=== PATIENT | female | born 1990 | race African-American/Black ===

== ENCOUNTER 2017-01-16 18:45 | Outpatient (CLI) | payer OTHER ==
[~2017-01-16] VITALS: Ht 172.7 cm; Wt 122.0 kg
[2017-01-16 19:16] VITALS: BP 144/78
[2017-01-16 23:00] VITALS: BP 133/80
== END 2017-01-16 23:00 | disposition home or self-care (01) ==
LOC: M LDO 18:45
PROVIDERS: ATTEND Obstetrics & Gynecology
DX: O47.03 False labor before 37 completed weeks of gestation, third trimester (principal); O21.0 Mild hyperemesis gravidarum; Z3A.35 35 weeks gestation of pregnancy

== ENCOUNTER 2017-02-07 19:37 | Inpatient (IN) | payer OTHER ==
[~2017-02-07] VITALS: Ht 167.6 cm; Wt 124.0 kg
[2017-02-07 20:04] VITALS: BP 129/74
[2017-02-07] MEDS ORDERED: PENICILLIN G POTASSIUM IV 5 MU in D5W MINI-BAG PLUS 100 ML IV STA (23:29)
[2017-02-07] MEDS ORDERED: OXYTOCIN DRIP 30 UNITS in APPROPRIATE DILUENT 1 EA IV SCH (23:30)
[2017-02-07] MEDS ORDERED: PRENTAB20 PO (23:38)
[2017-02-08] VITALS (33 sets, daily range): BP systolic 101–155; BP diastolic 56–120
[2017-02-08] MEDS: LR 1,000 ML IV SCH ×2 (00:02→08:04)
[2017-02-08 00:28] LABS: MEAN CORPUSCULAR HEMOGLOBIN 30.5 pg (27.0-33.0); MEAN CORPUSCULAR HGB CONC 34.1 g/dl (32.0-36.5); MEAN CORPUSCULAR VOLUME 89.4 fl (80.0-96.0); RED CELL DISTRIBUTION WIDTH 13.8 % (11.5-14.5); WHITE BLOOD COUNT 8.8 K/mm3 (4.0-10.0)
[2017-02-08] MEDS: PENICILLIN G POTASSIUM IV 2.5 MU in D5W 100 ML IV SCH ×2 (04:43→08:05)
[2017-02-08] MEDS: DOCUSATE SODIUM 100 MG CAP PO SCH ×2 (09:00→21:36)
[2017-02-08] MEDS: PRENATAL VITAMINS CHEWABLE TABLET PO SCH (09:00)
[2017-02-08] MEDS ORDERED: FENTANYL 2MCG/ML ROPIVACAINE 0.2% IN 0.9% NACL 200ML IVBAG As Ordered ONE (09:56)
[2017-02-08] MEDS ORDERED: ePHEDrine SULFATE 25 MG/5 ML(5MG/ML) SYRINGE IV PRN (11:15)
[2017-02-08] MEDS ORDERED: diphenhydrAMINE INJ 50MG/ML VIAL (J1200) IV PRN (11:15)
[2017-02-08] MEDS ORDERED: ONDANSETRON 4MG/2ML VIAL (J2405) IV PRN ×2 (11:15→12:15)
[2017-02-08] MEDS ORDERED: FENTANYL/ROPIVACAINE/NACL BAG 200 ML EPIDURAL SCH (11:15)
[2017-02-08] MEDS ORDERED: NALOXONE INJ 0.4 MG/1 ML VIAL (J2310) IV PRN (11:15)
[2017-02-08] MEDS ORDERED: EPIDURAL/PCA KEYS XX PRN (11:15)
[2017-02-08] MEDS ORDERED: EPIDURAL COMMENT XX SCH (11:15)
[2017-02-08] MEDS ORDERED: REFRIGERATOR IV KEYS XX PRN (11:15)
[2017-02-08] MEDS ORDERED: DIBUCAINE 1% OINTMENT 30GM TOP PRN (12:15)
[2017-02-08] MEDS ORDERED: MEASLES,MUMPS,RUBELLA VACCINE INJ (MMR-II) (90707) SC SCH (12:15)
[2017-02-08] MEDS ORDERED: METHYLERGONOVINE MALEATE 0.2 MG/ML VIAL (J2210) IM PRN (12:15)
[2017-02-08] MEDS ORDERED: PROMETHAZINE 25 MG TAB PO PRN (12:15)
[2017-02-08] MEDS ORDERED: RHOGAM 300 MCG (1500 IU) INJ (J2790) IM SCH (12:15)
[2017-02-08] MEDS ORDERED: ACETAMINOPHEN 500 MG TAB PO PRN (12:15)
[2017-02-08] MEDS ORDERED: OXYTOCIN DRIP 30 UNITS in APPROPRIATE DILUENT 1 EA IV SCH (13:00)
[2017-02-09] MEDS: IBUPROFEN 800 MG TAB PO PRN ×2 (02:54→11:12)
[2017-02-09 05:43] VITALS: BP 134/65
[2017-02-09] MEDS: PRENATAL VITAMINS CHEWABLE TABLET PO SCH (08:15)
[2017-02-09] MEDS: DOCUSATE SODIUM 100 MG CAP PO SCH (08:15)
[2017-02-09] MEDS ORDERED: COLA100C5 PO (13:09)
[2017-02-09] MEDS ORDERED: ACET50TA PO (13:09)
[2017-02-09] MEDS ORDERED: IBUP-1114 PO (13:09)
--- NOTE | 2017-02-10 13:21 | IPN ---
DATE: 02/09/2017 This patient has requested for circumcision of their male infant. After discussing the risks and benefits of circumcision, the medical and nonmedical indications, penile block and aftercare, expressed understanding of penile block and aftercare, signed the witnessed consent form out. All questions were answered. We await the clearance by the web designer.
== END 2017-02-09 15:30 | disposition home or self-care (01) | DRG 775 ==
LOC: M LDO 19:37 → M LDI 23:27 → M OBS 02-08 13:47
PROVIDERS: ADMIT Obstetrics & Gynecology; ATTEND Obstetrics & Gynecology
PROC: 10E0XZZ Delivery of Products of Conception, External Approach (ICD-10-PCS; principal; 2017-02-08)
PROC: 0HQ9XZZ Repair Perineum Skin, External Approach (ICD-10-PCS; 2017-02-08)
DX: O41.03X0 Oligohydramnios, third trimester, not applicable or unspecified (principal); Z68.41 Body mass index [BMI] 40.0-44.9, adult; Z3A.38 38 weeks gestation of pregnancy; O99.824 Streptococcus B carrier state complicating childbirth; O99.214 Obesity complicating childbirth; E66.9 Obesity, unspecified; O70.0 First degree perineal laceration during delivery; Z37.0 Single live birth

== ENCOUNTER 2017-02-12 14:05 | Emergency (ER) | payer OTHER ==
[~2017-02-12] VITALS: Ht 172.7 cm; Wt 118.2 kg
[~2017-02-12 14:05] MED LIST: ACET50TA PO; COLA100C5 PO; IBUP-1114 PO; PRENTAB20 PO
[2017-02-12] MEDS ORDERED: GI COCKTAIL 50ML BTL(HYOSCYAMINE/MAALOX/LIDOCAINE VISCOUS)(1:3:1) PO ONE ×2 (14:30→14:45)
[2017-02-12] MEDS ORDERED: MAALOX 30 ML SUSP *UDC PO ONE (14:45)
[2017-02-12] MEDS ORDERED: LIDOCAINE VISCOUS 2% SOLN 15ML UDC PO ONE (14:45)
[2017-02-12 14:58] LABS: BASO % 0.3 % (0.0-1.0); EOS # 0.4 K/mm3 (0.0-0.50); EOS % 3.6 % (0.0-3.0); LARGE UNSTAINED CELL # 0.1 K/mm3 (0.0-0.4); LYMPH # 2.2 K/mm3 (1.5-6.5); LYMPH % 19.8 % (24.0-44.0); MEAN CORPUSCULAR HEMOGLOBIN 29.7 pg (27.0-33.0); MEAN CORPUSCULAR HGB CONC 33.3 g/dl (32.0-36.5); MEAN CORPUSCULAR VOLUME 89.2 fl (80.0-96.0); MONO # 0.4 K/mm3 (0.0-0.8); MONO % 3.6 % (0.0-5.0); NEUTROPHILS # 7.5 K/mm3 (1.8-7.7); NEUTROPHILS % 71.6 % (36.0-66.0); PLATELET COUNT, AUTOMATED 316 k/mm3 (150-450); WHITE BLOOD COUNT 10.5 K/mm3 (4.0-10.0)
[2017-02-12 15:29] LABS: ALBUMIN 2.5 GM/DL (3.2-5.2); ALBUMIN/GLOBULIN RATIO 0.68 (1.00-1.93); ALKALINE PHOSPHATASE 120 U/L (45-117); ALT/SGPT 23 U/L (12-78); ANION GAP 9 MEQ/L (8-16); AST/SGOT 19 U/L (15-37); BILIRUBIN,DIRECT < 0.1 MG/DL (0.0-0.2); BILIRUBIN,TOTAL 0.3 MG/DL (0.2-1.0); BLOOD UREA NITROGEN 12 MG/DL (7-18); CALCIUM LEVEL 8.9 MG/DL (8.5-10.1); CARBON DIOXIDE LEVEL 26 MEQ/L (21-32); CHLORIDE LEVEL 110 MEQ/L (98-107); CREATININE FOR GFR 0.62 MG/DL (0.55-1.02); GLOMERULAR FILTRATION RATE > 60.0 (>60); GLUCOSE, FASTING 89 MG/DL (70-105); POTASSIUM SERUM 3.8 MEQ/L (3.5-5.1); SODIUM LEVEL 145 MEQ/L (136-145); TOTAL PROTEIN 6.2 GM/DL (6.4-8.2)
--- NOTE | 2017-02-12 15:29 | REP ---
Chest x-ray: Two views. History: Chest pain. Comparison study: No comparisons. Findings: The lungs are well inflated and free of infiltrate. The pleural angles are sharp. The heart size is normal. Pulmonary vasculature is not increased. No significant bony abnormality is seen. Impression: Negative chest x-ray. Signed by Chandra Hall MD 02/12/2017 04:25 P
[2017-02-12] MEDS ORDERED: TAGA200T3 PO (16:30)
--- NOTE | 2017-02-12 16:37 | REP ---
Duplex extremity venous ultrasound: Bilateral lower extremities. History: Shortness of breath bilateral leg pain 4 days . Findings: The deep veins are anechoic and fully compressible from the groin to the popliteal fossa in the right and left lower extremity. Color flow imaging is homogeneous. Spectral Doppler interrogation demonstrates intact respiratory variation in flow and normal manual augmentation of flow. There is no evidence of deep vein thrombosis. Impression: Negative bilateral lower extremity duplex venous ultrasound. No evidence of deep vein thrombosis. Signed by Chandra Hall MD 02/12/2017 04:27 P
[2017-02-12 17:04] VITALS: BP 130/82
--- NOTE | 2017-02-12 19:07 | ECGEPIP ---
Stationary ECG Study [facility] - ED Test Date: 2017-02-12 Pat Name: JOSEE HSIEH Department: Room: - Gender: F [employer] Ambassador: jaron : 1990 Requested By: Racquel Galicia Order Number: [id number] Reading MD: Racquel Galicia Measurements Intervals [place] Rate: 89 P: 64 HI: 148 QRS: 24 QRSD: 82 T: 55 QT: 322 QTc: 393 Interpretive Statements SINUS RHYTHM WITH SINUS ARRHYTHMIA NO PRIOR FOR COMPARISON Electronically Signed On 02-12-2017 19:06:50 EDT by Racquel Galicia
== END 2017-02-12 17:06 | disposition home or self-care (01) ==
LOC: M ED 14:05
DX: R10.13 Epigastric pain (principal); R06.02 Shortness of breath

== ENCOUNTER 2017-07-16 14:29 | Emergency (ER) | payer OTHER ==
[~2017-07-16] VITALS: Ht 167.6 cm; Wt 122.7 kg
[~2017-07-16 14:29] MED LIST changes: +TAGA200T3 PO
[2017-07-16] MEDS ORDERED: CLEO300C2 PO (16:27)
[2017-07-16] MEDS ORDERED: NORCOTAB PO ×3 (16:28→16:35)
[2017-07-16] MEDS ORDERED: KETOROLAC TROMETHAMINE 10 MG TAB PO ONE (16:30)
[2017-07-16 16:44] VITALS: BP 154/89
== END 2017-07-16 16:45 | disposition home or self-care (01) ==
LOC: M ED 15:32
DX: K04.7 Periapical abscess without sinus (principal)